=== PATIENT | female | born 1955 | race Caucasian/White ===

== ENCOUNTER → 2016-11-28 | Outpatient (CLI) | payer BC ==
[~2016-11-28] MED LIST: CALC-969 PO; DIAZ10TA PO; HYDR-4246 PO; IBUP-1547 PO; IMIP50TA6 PO; MULT-37 PO
== END ==
LOC: WC.BC 08:09
DX: Z12.31 Encounter for screening mammogram for malignant neoplasm of breast (principal); N64.59 Other signs and symptoms in breast; N64.89 Other specified disorders of breast
CPT/HCPCS: 77063; G0202

== ENCOUNTER → 2016-12-07 | Outpatient (CLI) | payer BC | LOC: IMA 08:03 | PROVIDERS: ATTEND Obstetrics & Gynecology | DX: N60.02 Solitary cyst of left breast (principal); R92.2 Inconclusive mammogram ==